=== PATIENT | female | born 1965 | race Two or more races ===

== ENCOUNTER → 2019-07-10 | Outpatient (CLI) | payer OTHER ==
[~2019-07-10] MED LIST: AZIT250T PO; Antibiotic PO; DEXT1TAB3 PO; FERR-46 PO; GUAI-103 PO; IBUP-1221 PO; LOSA100T14 PO; PANT40TA5 PO
[2019-07-10 16:29] LABS: BASOPHILS # (AUTO) 0.07 x10^3/uL (0-0.1); BASOPHILS % (AUTO) 1 % (0-1); EOSINOPHILS # (AUTO) 0.16 x10^3/uL (0-0.4); EOSINOPHILS % (AUTO) 2 % (1-7); LYMPHOCYTES # (AUTO) 2.46 x10^3/uL (1-3.4); LYMPHOCYTES % (AUTO) 28 % (22-44); MD NO; MEAN CORPUSCULAR HEMOGLOBIN 29.9 pg (27.0-34.8); MEAN CORPUSCULAR VOLUME 87.9 fL (80-100); MEAN PLATELET VOLUME 7.5 fL (7.4-10.4); MONOCYTES # (AUTO) 0.59 x10^3/uL (0.2-0.8); MONOCYTES % (AUTO) 7 % (2-9); NEUTROPHILS # (AUTO) 5.65 x10^3/uL (1.8-6.8); NEUTROPHILS % (AUTO) 63 % (42-75); PLATELET COUNT 328 x10^3/uL (130-400); RED CELL DISTRIBUTION WIDTH 13.4 % (9.6-15.2)
[2019-07-10 16:41] LABS: ALANINE AMINOTRANSFERASE 27 U/L (12-78); ANION GAP 5 mmol/L (5-15); CALCIUM 8.8 mg/dL (8.5-10.1); CHLORIDE 107 mmol/L (98-107); CREATININE 0.75 mg/dL (0.55-1.02)
[2019-07-10 16:44] LABS: ALKALINE PHOSPHATASE 58 U/L (45-117); BILIRUBIN,TOTAL 0.2 mg/dL (0.2-1.0); TOTAL PROTEIN 7.6 g/dL (6.4-8.2)
== END | disposition home or self-care (01) ==
LOC: STAR 15:35
PROVIDERS: ATTEND Specialist
DX: Z01.818 Encounter for other preprocedural examination (principal); D21.9 Benign neoplasm of connective and other soft tissue, unspecified
CPT/HCPCS: 36415; 80053; 85025

== ENCOUNTER 2019-07-16 09:25 | Observation (INO) | payer OTHER ==
[~2019-07-16] VITALS: Ht 157.5 cm; Wt 81.1 kg
[2019-07-16] MEDS ORDERED: LACTATED RINGERS 1,000 ML IV SCH (09:43)
[2019-07-16 09:56] VITALS: BP 156/86
[2019-07-16] MEDS ORDERED: GABAPENTIN 300 MG CAPSULE PO ONE (10:00)
[2019-07-16] MEDS ORDERED: ACETAMINOPHEN 500 MG TABLET PO ONE (10:00)
[2019-07-16 10:40] LABS: HCG UR SG 1.018 (1.003-1.030)
[2019-07-16] MEDS ORDERED: FENTANYL PF 250 MCG/5ML ONE (11:40)
[2019-07-16] MEDS ORDERED: MIDAZOLAM 1 MG/ML, 2ML ONE (11:40)
[2019-07-16] MEDS ORDERED: PHENAZOPYRIDINE 200 MG TABLET ONE (11:52)
[2019-07-16] MEDS ORDERED: PHENAZOPYRIDINE 200 MG TABLET PO ONE (12:00)
[2019-07-16] MEDS ORDERED: SILVER NITRATE STICK TP ONE (12:12)
[2019-07-16] MEDS ORDERED: EPINEPHRINE 1 MG/ML, 1ML ONE (12:12)
[2019-07-16] MEDS ORDERED: BUPIVACAINE/PF 0.25% ONE (12:12)
[2019-07-16] MEDS ORDERED: FLUORESCEIN SODIUM 500 MG/5 ML ONE (12:12)
[2019-07-16] MEDS ORDERED: CEFAZOLIN 1,000 MG ONE ×2 (12:28→16:26)
[2019-07-16] MEDS ORDERED: ONDANSETRON 2MG/ML, 2ML ONE ×2 (12:28→16:26)
[2019-07-16] MEDS ORDERED: GLYCOPYRROLATE 0.2MG/1ML, 5ML ONE ×2 (12:28→16:26)
[2019-07-16] MEDS ORDERED: PROPOFOL 10 MG/ML, 20ML ONE ×2 (12:28→16:26)
[2019-07-16] MEDS ORDERED: ROCURONIUM 10 MG/ML,10ML ONE (12:28)
[2019-07-16] MEDS ORDERED: SUCCINYLCHOLINE 20 MG/ML, 10ML ONE ×2 (12:28→16:26)
[2019-07-16] MEDS ORDERED: NEOSTIGMINE 1 MG/ML, 10ML ONE ×2 (12:28→16:26)
[2019-07-16] MEDS ORDERED: DEXAMETHASONE 4 MG/ML, 1ML ONE ×2 (12:28→16:26)
[2019-07-16] MEDS ORDERED: HALOPERIDOL 5 MG/ML IV PRN (12:30)
[2019-07-16] MEDS ORDERED: HYDROmorphone 1 MG/ML, 1ML INJ IVPush PRN (12:30)
[2019-07-16] MEDS ORDERED: MEPERIDINE/PF 25MG/ML,1ML IVPush PRN (12:30)
[2019-07-16] MEDS ORDERED: OXYcodone 5 MG/5 ML ORAL.SOL UDC PO PRN (12:30)
[2019-07-16] MEDS ORDERED: PROMETHAZINE 25 MG/ML, 1ML IV PRN (12:30)
[2019-07-16] MEDS ORDERED: LABETALOL 5MG/ML, 20ML IV PRN (12:30)
[2019-07-16] MEDS ORDERED: hydrALAzine 20 MG/ML, 1ML IV PRN (12:30)
[2019-07-16] MEDS ORDERED: KETOROLAC 30 MG/1 ML IVPush STA (15:20)
[2019-07-16] MEDS ORDERED: OXYcodone 5 MG/5 ML ORAL.SOL UDC ONE (15:23)
[2019-07-16] MEDS ORDERED: FENTANYL PF 100 MCG/2ML ONE (15:23)
[2019-07-16] MEDS ORDERED: KETOROLAC 30 MG/1 ML ONE (15:25)
[2019-07-16] MEDS: FENTANYL PF 100 MCG/2ML IV PRN ×2 (15:28→15:38)
[2019-07-16] MEDS ORDERED: ROCURONIUM 10MG/ML,5ML ONE (16:26)
[2019-07-16 16:32] VITALS: BP 133/86
[2019-07-16] MEDS ORDERED: HYDROcodone/APAP 7.5-325MG/15ML UDC PO PRN (17:00)
[2019-07-16] MEDS ORDERED: ONDANSETRON 2MG/ML, 2ML IV PRN (17:00)
[2019-07-16] MEDS ORDERED: MEPERIDINE/PF 100 MG/ML IM PRN (17:00)
[2019-07-16] MEDS ORDERED: KETOROLAC 30 MG/1 ML IV PRN (17:00)
[2019-07-16] MEDS ORDERED: HYDROmorphone 2 MG/ML, 1ML IV PRN (17:00)
[2019-07-16] MEDS: KETOROLAC 30 MG/1 ML IV SCH ×2 (17:08→22:52)
[2019-07-16 18:36] VITALS: BP 124/80
[2019-07-16] MEDS: D5%-LACTATED RINGERS 1,000 ML IV SCH (20:27)
[2019-07-16] MEDS: SIMETHICONE 80 MG CHEW TAB PO SCH (20:27)
[2019-07-16] MEDS ORDERED: CEFAZOLIN PMX 1GM/50ML 50 ML IVPB SCH (20:30)
[2019-07-17 01:00] VITALS: BP 123/77
[2019-07-17] MEDS: D5%-LACTATED RINGERS 1,000 ML IV SCH ×2 (04:00→12:00)
[2019-07-17] MEDS: KETOROLAC 30 MG/1 ML IV SCH ×2 (04:28→10:56)
[2019-07-17 10:22] VITALS: BP 133/74
[2019-07-17] MEDS: SIMETHICONE 80 MG CHEW TAB PO SCH (10:56)
[2019-07-17] MEDS ORDERED: VICODIN (11:59)
[2019-07-17] MEDS ORDERED: VICODIN 5/325 PO (12:00)
== END 2019-07-17 15:56 | disposition home or self-care (01) ==
LOC: OUT 09:25 → 4NW 16:00 → INTOOBSV 16:39 → OUT 16:39 → 4NW 16:39
PROVIDERS: ADMIT Specialist; ATTEND Specialist
DX: D25.9 Leiomyoma of uterus, unspecified (principal); D50.9 Iron deficiency anemia, unspecified; F17.210 Nicotine dependence, cigarettes, uncomplicated; N83.201 Unspecified ovarian cyst, right side; N83.202 Unspecified ovarian cyst, left side; Z79.899 Other long term (current) drug therapy
CPT/HCPCS: 36415; 58552; 81025; 85014; 85018; 88307; 96365; 96375; 96376; G0378; J0171; J0330; J0690; J1100; J1885; J2250; J2405; J2704; J2710; J3010; J3490; J7120; J7121

== ENCOUNTER 2020-01-20 00:06 | Emergency (ER) | payer OTHER ==
[~2020-01-20] VITALS: Ht 157.5 cm; Wt 81.0 kg
[~2020-01-20 00:06] MED LIST changes: -PANT40TA5 PO; +PANT40TA6 PO; +VICODIN; +VICODIN 5/325 PO
--- NOTE | 2020-01-20 00:23 | NUR ---
Patient presents to ER c/o rash all over body since??? Patient states it is itchy and burning. She has seen UC and her PCP who rx multiple drugs and creams which have not helped. Intermittent throat swelling. None at this time; patient maintains airway well. Patient is in NAD. Respirations even and unlabored. Addendum: 01/20/20 at 0202 by [email or web address] Rash has been since December 25.
[2020-01-20] MEDS ORDERED: DIPHENHYDRAMINE 50 MG/ML, 1ML IVPush ONE (01:30)
[2020-01-20] MEDS ORDERED: SODIUM CHLORIDE FLUSH 10ML SYR IVF ONE (01:30)
[2020-01-20 01:38] LABS: BASOPHILS # (AUTO) 0.02 x10^3/uL (0-0.1); BASOPHILS % (AUTO) 0 % (0-1); EOSINOPHILS # (AUTO) 0.63 x10^3/uL (0-0.4); EOSINOPHILS % (AUTO) 9 % (1-7); LYMPHOCYTES # (AUTO) 1.95 x10^3/uL (1-3.4); LYMPHOCYTES % (AUTO) 27 % (22-44); MD NO; MEAN CORPUSCULAR HEMOGLOBIN 30.7 pg (27.0-34.8); MEAN CORPUSCULAR VOLUME 90.3 fL (80-100); MEAN PLATELET VOLUME 7.7 fL (7.4-10.4); MONOCYTES # (AUTO) 0.57 x10^3/uL (0.2-0.8); MONOCYTES % (AUTO) 8 % (2-9); NEUTROPHILS % (AUTO) 56 % (42-75); PLATELET COUNT 261 x10^3/uL (130-400); RED BLOOD COUNT 4.59 x10^6/uL (3.82-5.3); RED CELL DISTRIBUTION WIDTH 13.4 % (9.6-15.2)
[2020-01-20] MEDS ORDERED: DIPHENHYDRAMINE 50 MG/ML, 1ML ONE (01:38)
[2020-01-20 01:51] LABS: ALANINE AMINOTRANSFERASE 34 U/L (12-78); ALBUMIN 3.6 g/dL (3.4-5.0); ANION GAP 7 mmol/L (5-15); CALCIUM 8.9 mg/dL (8.5-10.1); CHLORIDE 111 mmol/L (98-107); CREATININE 0.67 mg/dL (0.55-1.02)
[2020-01-20 01:53] LABS: ALKALINE PHOSPHATASE 46 U/L (45-117); BILIRUBIN,TOTAL 0.4 mg/dL (0.2-1.0); TOTAL PROTEIN 6.7 g/dL (6.4-8.2)
[2020-01-20] MEDS ORDERED: FAMOTIDINE 20 MG TABLET ONE (02:22)
[2020-01-20] MEDS ORDERED: FAMOTIDINE 20 MG TABLET PO ONE (02:30)
[2020-01-20] MEDS ORDERED: EPINEPHRINE 1 MG/ML, 1ML ONE (02:57)
[2020-01-20] MEDS ORDERED: EPINEPHRINE 1 MG/ML, 1ML SQ ONE (03:00)
[2020-01-20 03:01] VITALS: BP 158/88
== END 2020-01-20 03:41 | disposition home or self-care (01) ==
LOC: ED 01:01
DX: L50.1 Idiopathic urticaria (principal)
CPT/HCPCS: 36415; 80053; 85025; 96372; 96374; 99284; J0171; J1200